=== PATIENT | male | born 1965 | race Caucasian/White ===

== ENCOUNTER 2018-10-27 07:20 | Day surgery (SDC) | payer OTHER ==
[~2018-10-27 07:20] MED LIST: Lactated Ringers 1,000 ML IV SCH; Lidocaine 1%/Sod Bicarbonate in NS 8.4% 1 ML Syringe IDERM PRN; Sodium Chloride 0.9% 10 ML Syringe FLUSH PRN
[2018-10-27] MEDS ORDERED: Propofol 200 MG/20 ML SDV ONE (08:05)
[2018-10-27] MEDS ORDERED: Lidocaine 1% 2 ML ONE ×2 (08:06)
[2018-10-27] MEDS ORDERED: ceFAZolin 1 GM Vial ONE ×2 (08:07)
[2018-10-27] MEDS ORDERED: fentaNYL 250 MCG/5 ML SDV ONE (08:09)
[2018-10-27] MEDS ORDERED: Midazolam 1 MG/ML 2 ML SDV ONE (08:09)
[2018-10-27] MEDS ORDERED: Triamcinolone Acetonide 40 MG/ML 1 ML MDV ONE ×2 (09:03→09:21)
[2018-10-27] MEDS ORDERED: Bupivacaine 0.25% 30 ML SDV ONE (09:03)
--- NOTE | 2018-10-27 09:08 | PCM.PREANE ---
Preanesthetic Assessment - Anesthesia/Transfusion/Family Hx Anesthesia History: Prior Anesthesia Without Reaction Family History of Anesthesia Reaction: No Transfusion History: No Prior Transfusion(s) - Review of Systems General: No Symptoms Pulmonary: No Symptoms Cardiovascular: No Symptoms Gastrointestinal: No Symptoms Neurological: No Symptoms Other: Reports: None - Physical Assessment NPO Status Date: 10/26/18 NPO Status Time: 22:30 Pulse: 75 O2 Sat by Pulse Oximetry: 93 Respiratory Rate: 16 Blood Pressure: 143/71 Temperature: 98.0 C Vital Signs: Last Vital Signs Temp 36.7 C 10/27/18 07:40 Pulse 75 10/27/18 07:40 Resp 16 10/27/18 07:40 BP 143/71 H 10/27/18 07:40 Pulse Ox 93 L 10/27/18 07:40 Height: 1.7 m Weight: 102.058 kg ASA Class: 1 Mental Status: Alert & Oriented x3 Airway Class: Mallampati = 2 Dentition: Reports: Normal Dentition Thyro-Mental Finger Breadths: 3 Mouth Opening Finger Breadths: 3 ROM/Head Extension: Full Lungs: Clear to Auscultation, Normal Respiratory Effort, Decreased Breath Sounds (bilateral) Cardiovascular: Regular Rate, Regular Rhythm - Lab Values: Laboratory Last Values MRSA (PCR) Negative 10/26/18 13:04 - Allergies Allergies/Adverse Reactions: Allergies Allergy/AdvReac Type Severity Reaction Status Date / Time No Known Allergies Allergy Verified 10/26/18 14:05 - Acknowledgements Anesthesia Type Planned: General Anesthesia Pt an Appropriate Candidate for the Planned Anesthesia: Yes Alternatives and Risks of Anesthesia Discussed w Pt/Guardian: Yes Pt/Guardian Understands and Agrees with Anesthesia Plan: Yes PreAnesthesia Questionnaire Cardiovascular History: Reports: None Respiratory History: Reports: None Gastrointestinal History: Reports: None Genitourinary History: Reports: None GILL [employer]OX TENDER History: Reports: None Musculoskeletal History: Reports: Other (See Below) Other Musculoskeletal History: left ankle surgery, left knee arthroscopy Neurological History: Reports: None Psychiatric History: Reports: None Endocrine/Metabolic History: Reports: None Hematologic History: Reports: None Immunologic History: Reports: None Oncologic (Cancer) History: Reports: None Dermatologic History: Reports: None - Past Surgical History Head Surgeries/Procedures: Reports: None HEENT Surgical History: Reports: LASIK Cardiovascular Surgical History: Reports: None Respiratory Surgical History: Reports: None GI Surgical History: Reports: None Female Surgical History: Reports: None Male Surgical History: Reports: None Endocrine Surgical History: Reports: None Neurological Surgical History: Reports: None Musculoskeletal Surgical History: Reports: None, Arthroscopic Knee ((L)), Other (See Below) ((L) ankle) Oncologic Surgical History: Reports: None Dermatological Surgical History: Reports: None - SUBSTANCE USE Smoking Status *Q: Never Smoker Recreational Drug Use History: No - HOME MEDS Home Medications: Home Meds Acetaminophen/HYDROcodone [[place] 325-5 MG] 1 - 2 tab PO Q6H PRN #40 tablet 10/27 [Rx] Aspirin 325 mg PO BID #84 tab 10/27/18 [Rx] Cyclobenzaprine [Flexeril] 10 mg PO Q8H PRN #40 tab 10/27/18 [Rx] - CURRENT (IN HOUSE) MEDS Current Meds: Current Medications Lactated Ringer's (Ringers, Lactated) 1,000 mls @ 125 mls/hr IV ASDIRECTED DESTINI Stop: 10/27/18 23:00 Last Admin: 10/27/18 07:55 Dose: 125 mls/hr Lidocaine/Sodium Bicarbonate (Buffered Lidocaine 1% In Ns 8.4%) 0.25 ml IDERM ONETIME PRN PRN Reason: Prior to IV Start Stop: 10/27/18 18:00 Last Admin: 10/27/18 07:55 Dose: 0.25 ml Sodium Chloride (Saline Flush) 10 ml FLUSH ASDIRECTED PRN PRN Reason: Keep Vein Open Stop: 10/27/18 18:00 Discontinued Medications Cefazolin Sodium (Ancef) Confirm Administered Dose 1 gm .ROUTE .STK-MED ONE Stop: 10/27/18 08:08 Cefazolin Sodium (Ancef) Confirm Administered Dose 1 gm .ROUTE .STK-MED ONE Stop: 10/27/18 08:08 Fentanyl (Sublimaze) Confirm Administered Dose 250 mcg .ROUTE .STK-MED ONE Stop: 10/27/18 08:10 Lidocaine HCl (Xylocaine-Mpf 1%) Confirm Administered Dose 2 mls @ as directed .ROUTE .STK-MED ONE Stop: 10/27/18 08:07 Lidocaine HCl (Xylocaine-Mpf 1%) Confirm Administered Dose 2 mls @ as directed .ROUTE .STK-MED ONE Stop: 10/27/18 08:07 Midazolam HCl (Versed 1 Mg/Ml) Confirm Administered Dose 2 mg .ROUTE .STK-MED ONE Stop: 10/27/18 08:10 Propofol (Diprivan 20 Ml) Confirm Administered Dose 200 mg .ROUTE .STK-MED ONE Stop: 10/27/18 08:06
[2018-10-27] MEDS ORDERED: Ondansetron 4 MG/2 ML SDV IVPUSH PRN (10:03)
[2018-10-27] MEDS ORDERED: Meperidine 50 MG/ML Vial IVPUSH PRN (10:03)
[2018-10-27] MEDS ORDERED: fentaNYL 100 MCG/2 ML SDV IVPUSH PRN (10:03)
[2018-10-27] MEDS ORDERED: Lactated Ringers 1,000 ML ONE (10:14)
[2018-10-27] MEDS ORDERED: fentaNYL 100 MCG/2 ML SDV ONE (10:23)
[2018-10-27] MEDS ORDERED: Ondansetron 4 MG/2 ML SDV ONE (10:54)
--- NOTE | 2018-10-27 11:17 | PCM.POSTAN ---
POST ANESTHESIA ASSESSMENT - MENTAL STATUS Mental Status: Alert, Oriented - VITAL SIGNS Pulse Rate: 85 SaO2: 93 Resp Rate: 15 Blood Pressure: 149/70 Temperature: 97.3 C - RESPIRATORY Respiratory Status: Respiratory Rate WNL, Airway Patent, O2 Saturation Stable, Supplemental Oxygen (pt O2 via mask as mouth breather) - CARDIOVASCULAR CV Status: Pulse Rate WNL, Blood Pressure Stable - GASTROINTESTINAL GI Status: No Symptoms - PAIN Pain Score: 0 - POST OP HYDRATION Hydration Status: Adequate & Stable
[2018-10-27] MEDS ORDERED: Acetaminophen/HYDROcodone 325-5 MG Tab PO PRN (11:58)
--- NOTE | 2018-10-27 12:23 | PCM48HPAN ---
Post Anesthesia Note - EVALUATION WITHIN 48HRS OF ANESTHETIC Vital Signs in Normal Range: Yes Patient Participated in Evaluation: Yes Respiratory Function Stable: Yes Airway Patent: Yes Cardiovascular Function Stable: Yes Hydration Status Stable: Yes Pain Control Satisfactory: Yes Nausea and Vomiting Control Satisfactory: Yes Mental Status Recovered: Yes Pulse Rate: 85 Resp Rate: 10 Temperature: 97.3 C Blood Pressure: 149/70
--- NOTE | 2018-10-27 14:14 | PCM.OPNOTE ---
- General Post-Op/Procedure Note Date of Surgery/Procedure: 10/27/18 Operative Procedure(s): right achilles tendon repair and right knee corticosteroid injection Pre Op Diagnosis: right achilles tendon rupture and right knee osteoarthritis Post-Op Diagnosis: Same Anesthesia Technique: General ET Tube, Local Primary Surgeon: Jose Juan Trimble Anesthesia Provider: Rocio Dobson [employer] Professor: Mary Rai EBL in mLs: 5 Complications: None Condition: Good Free Text/Narrative:: Intake & Output 10/26/18 10/27/18 10/27/18 22:59 06:59 14:59 Intake Total 200 Balance 200
--- NOTE | 2018-10-28 13:56 | OR ---
DATE OF OPERATION: 10/27/2018 SURGEON: Jose Juan Trimble MD OPERATION PERFORMED: Right Achilles tendon repair and right knee corticosteroid injection. PREOPERATIVE DIAGNOSIS: Right Achilles tendon rupture and right knee osteoarthrosis. POSTOPERATIVE DIAGNOSIS: Right Achilles tendon rupture and right knee osteoarthrosis. ANESTHESIA: General endotracheal intubation with local. ANESTHESIA PROVIDER: Rocio Dobson CRNA. SCUTCHER TENDER: Mary Rai PA-C. ESTIMATED BLOOD LOSS: 5 mL. COMPLICATIONS: None. CONDITION: Stable. DESCRIPTION OF PROCEDURE: The patient was identified in the preoperative holding area. Proper site was marked and identified by the surgeon. The patient was taken back to the operative theater where after adequate anesthesia, the patient was placed in the prone positioning with a bump placed under the chest. His neck was placed in neutral position. At this time, the right lower extremity had a nonsterile tourniquet applied and was then sterilely prepped and draped in the usual sterile fashion. OR time-out was performed. The patient received 2 g of IV Ancef. At this time, the right lower extremity was elevated and tourniquet was insufflated to 250 mmHg. A standard incision just medial to the Achilles tendon was then taken down. The paratenon was identified and was incised. There was noted to be a large amount of scar tissue in the midportion of the Achilles tendon, but it had completely solidified at this time. I did with a #15 blade debulk the middle portion of the Achilles tendon and then used and three #5 FiberWire stitches to shorten the Achilles tendon in a plantar flexed position for better mechanical advantage and tensioning to the right Achilles tendon after it healed. At this time, his resting position was in a better position after all three of the FiberWire stitches were tensioned. Otherwise, the rest of the tendon had good scar tissue intact. At this time, adequate saline was irrigated through the wound. 0 Vicryl was used in a running stitch for the paratenon, 2-0 Vicryl was used subcutaneously, and nylon was used for the skin. The patient was placed in a sterile soft dressing and posterior slab splint, and he was sent to the PACU in stable condition after a right knee corticosteroid injection was done with 2 mL of 40 mg Kenalog and 4 mL of 0.25% Marcaine injected. He tolerated both procedures well. MMODAL /[id number] CRESCENCIO
== END 2018-10-27 14:45 | disposition home or self-care (01) ==
LOC: JD.SDS 07:20
PROVIDERS: ATTEND Orthopaedic Surgery
DX: S86.011A Strain of right Achilles tendon, initial encounter (principal); M17.11 Unilateral primary osteoarthritis, right knee; Z79.82 Long term (current) use of aspirin; Z79.899 Other long term (current) drug therapy
CPT/HCPCS: 01472; 87641; A9270-GY; J0690; J2001; J2250; J2405; J2704; J3010; J3301; J3490; J7120